=== PATIENT | female | born 1965 | race Caucasian/White ===

== ENCOUNTER 2022-11-21 06:51 | Day surgery (SDC) | payer MEDICARE, BC ==
[~2022-11-21] VITALS: Ht 154.9 cm; Wt 66.7 kg
[~2022-11-21 06:51] MED LIST: AMBIEN 10MG10 MG PO; CYMBALTA 60MG60 MG PO; FOSAMAX 35MG35 MG PO; MESTINON 6060 MG/TAB PO; PRIVIGEN 200 M200 ML IV; PROTONIX 40MG T40 MG PO
[2022-11-21] MEDS ORDERED: CRESTOR20 MG PO (06:57)
[2022-11-21] MEDS ORDERED: NEURONTIN400 MG/CAP PO (06:58)
[2022-11-21] MEDS ORDERED: AJOVY225 MG/1.5 SQ (06:58)
[2022-11-21] MEDS ORDERED: VITAMIN D31000 I1 PO (06:58)
[2022-11-21] MEDS ORDERED: PROBIOTIC BLEN1 EACH PO (06:59)
[2022-11-21 07:02] VITALS: BP 118/85; PULSE 93; TEMP 96.8
[2022-11-21 08:46] VITALS: BP 119/82; PULSE 79; TEMP 96.8
[2022-11-21 09:00] VITALS: BP 108/78; PULSE 76
[2022-11-21 09:15] VITALS: BP 113/75; PULSE 86
--- NOTE | 2022-11-21 09:18 | NUR ---
0846- PT RETURNS TO [facility]AY [facility] VIA CART. AWAKE AND ALERT. RESPIRATIONS UNLABORED. PT AMBULATES TO RECLINER WITH 2:1 SBA. DENIES NAUSEA OR ABDOMINAL PAIN. PT HOOKED UP TO MONITOR AND VS OBTAINED. CALL LIGHT AT SIDE AND IN ROOM. 0850- PT TOLERATING JUICE AND CRACKERS WITH PEANUT BUTTER WITHOUT NAUSEA. 0853- DR. CAI IN ROOM SPEAKING TO PATIENT. 0905- D/C INSTRUCTIONS REVIEWED. PT VERBALIZED UNDERSTANDING. COPY PROVIDED IN D/C FOLDER. 0910- PT DRESSES SELF. 0918- PT D/C OFF UNIT VIA W/C TO PERSONAL CAR. PT LEFT IN STABLE CONDITION.
== END 2022-11-21 09:18 | disposition home or self-care (01) ==
LOC: SDCO 06:51
DX: D12.3 Benign neoplasm of transverse colon (principal); K51.40 Inflammatory polyps of colon without complications; K62.89 Other specified diseases of anus and rectum; K55.9 Vascular disorder of intestine, unspecified; Z98.0 Intestinal bypass and anastomosis status; Z87.891 Personal history of nicotine dependence
CPT/HCPCS: J2405; J2704; J3010; J7120

== ENCOUNTER 2023-09-27 08:25 | Outpatient (CLI) | payer MEDICARE, BC ==
[~2023-09-27] VITALS: Ht 154.9 cm; Wt 70.4 kg
[~2023-09-27 08:25] MED LIST changes: +AJOVY225 MG/1.5 SQ; +CRESTOR20 MG PO; +NEURONTIN400 MG/CAP PO; +PROBIOTIC BLEN1 EACH PO; +VITAMIN D31000 I1 PO
[2023-09-27 08:39] VITALS: BP 105/73; PULSE 84; TEMP 98.2
[2023-09-27] MEDS ORDERED: NURTEC ODT75 MG PO (09:07)
[2023-09-27] MEDS ORDERED: RESTASIS MULTI5.5 ML OP (09:07)
[2023-09-27] MEDS ORDERED: ZETIA 10MG TAB10 MG PO (09:08)
[2023-09-27] MEDS ORDERED: PROLIA60 MG/ML SQ (09:09)
[2023-09-27] MEDS ORDERED: PROBIOTIC BLEN1 EACH PO (09:10)
--- NOTE | 2023-09-27 09:20 | NUR ---
Pt tolerated prolia without issue. She is free of complaints at time of discharge. She exits dept with steady gait using cane, and is escorted to elevator.
== END 2023-09-27 09:20 | disposition home or self-care (01) ==
LOC: EUO 08:25
DX: M81.0 Age-related osteoporosis without current pathological fracture (principal)
CPT/HCPCS: J0897

== ENCOUNTER 2024-07-26 12:07 | Emergency (ER) | payer MEDICARE, BC ==
[~2024-07-26] VITALS: Ht 152.4 cm; Wt 70.5 kg
[~2024-07-26 12:07] MED LIST changes: +DESYREL 100MG100 MG PO; +NURTEC ODT75 MG PO; +PLAQUENIL 200M200 MG PO; +PROLIA60 MG/ML SQ; +RESTASIS MULTI5.5 ML OP; +ZETIA 10MG TAB10 MG PO
[2024-07-26 12:40] VITALS: TEMP 97.8
[2024-07-26 13:20] LABS: COLLECTION METHOD CLEAN CATCH
[2024-07-26 13:28] LABS: PH 6.5 (5.0-8.5); URINE APPEARANCE CLEAR (CLEAR/HAZY); URINE BLOOD NEGATIVE (NEGATIVE); URINE COLOR YELLOW (YELLOW); URINE GLUCOSE NEGATIVE (NEGATIVE); URINE KETONE TRACE (NEGATIVE); URINE NITRATE NEGATIVE (NEGATIVE); URINE PROTEIN(semi-quant) NEGATIVE (NEGATIVE)
[2024-07-26] MEDS ORDERED: LR 1,000 ML IV ONE (14:00)
[2024-07-26] MEDS ORDERED: Ondansetron 4 MG/2 ML VIAL IV ONE (14:00)
[2024-07-26] MEDS ORDERED: Morphine 4 MG/ML VIAL IV ONE (14:00)
[2024-07-26 14:08] LABS: BASO % 0.3 % (0.0-2.0); EOS # 0.1 K/mm3 (0.0-0.7); EOS % 1.3 % (0.0-4.0); GRAN # 4.8 K/mm3 (1.4-6.5); GRAN % 63.4 % (42.2-75.2); HEMATOCRIT 37.1 % (37.0-47.0); HEMOGLOBIN 12.5 g/dl (12.5-16.0); LYMPH # 1.7 K/mm3 (1.2-3.4); LYMPH % 22.9 % (20.0-51.0); MEAN CELL VOLUME 93 fl (80.0-100.0); MEAN CORPUSCULAR HEMOGLOBIN 31 pg (27-31); MEAN CORPUSCULAR HGB CONC 34 g/dl (33.0-37.0); MEAN PLATELET VOLUME 10.2 fl (7.4-10.4); MONO # 0.9 K/mm3 (0.1-0.6); MONO % 11.7 % (1.7-9.3); PLATELET COUNT 276 K/mm3 (130-400); RED BLOOD COUNT 3.98 M/mm3 (4.10-5.30)
[2024-07-26 14:28] LABS: ALBUMIN 3.3 g/dL (3.4-4.8); BILIRUBIN,TOTAL 0.5 mg/dL (0.2-1.2); CALCIUM 8.6 mg/dL (8.4-10.2); CREATININE, serum 0.82 mg/dL (0.57-1.11); POTASSIUM 4.4 mEq/L (3.5-4.5); TOTAL PROTEIN 8.3 g/dl (6.2-8.1)
[2024-07-26] MEDS ORDERED: NS 100 ML IV SCH (14:47)
[2024-07-26] MEDS ORDERED: Iohexol 300 - 100 ML VIAL IV ONE (14:48)
[2024-07-26] MEDS ORDERED: ZOFRAN ODT4 MG PO (15:25)
[2024-07-26 15:35] VITALS: BP 138/84; PULSE 76
== END 2024-07-26 15:33 | disposition home or self-care (01) ==
LOC: COL.ER 12:07
PROVIDERS: Emergency Medicine
DX: R10.84 Generalized abdominal pain (principal); M54.50 Low back pain, unspecified
CPT/HCPCS: J2270; J2405; J7120; Q9967